=== PATIENT | female | born 1945 | race Caucasian/White ===

== ENCOUNTER → 2016-10-27 | Outpatient (CLI) | payer OTHER ==
[~2016-10-27] MED LIST: ACETAMINOPHEN325 M1 PO; ADVAIR 250-501 EACH IH; ALBUTEROL2.5 MG/0.5 INH; ARAVA20 MG PO; ASPIR 8181 MG PO; ASPIRIN EC81 M1 PO; CEPACOL SORE T1 EAC9 PO; CEPHALEXIN 500500 M3 PO; COLACE100 MG PO; COUMADIN 5 MG TA5 M1 PO; DITROPAN XL5 M1 PO; DUONEB 2.5-0.5 M3 ML INH; DURAGESIC1 EAC2; ENOXAPARIN100 MG/11 SUBQ; ESTRACE0.5 MG PO; FENTANYL PA50 MCG/HR TRANSDERM; FENTANYL PATCH75 MCG TRANSDERM; FISH OIL 1,0001 EAC5 PO; FUROSEMIDE 20 M20 MG; FUROSEMIDE 40 M40 M1 PO; GLUCOPHAGE1000 MG PO; GLUCOPHAGE500 MG PO; HYDROCODON-ACE1 EAC7 PO; HYDROCODONE-AP1 EAC6 PO; K-DUR10 MEQ PO; KEFLEX500 M1 PO; LASIX 40 MG TAB40 M2 PO; LASIX 80 MG TAB80 MG PO; LEVOTHYROXIN0.075 MG PO; LEVOTHYROXIN0.112 M1 PO; LEVOTHYROXINE0.05 MG PO; LEVOXYL50 MCG PO; LEVOXYL75 MCG PO; LISINOPRIL10 MG PO; LYRICA 75 MG CA75 MG PO; METFORMIN HCL500 MG PO; METHADONE HCL 110 MG PO; MOM PO; NEURONTIN 300300 M1 PO; NORCO 5-325 TA1 EACH PO; NOVOLOG100 UNIT/1; PAROXETINE HCL40 MG PO; PAXIL20 MG PO; PAXIL40 MG PO; PREDNISONE 10 M10 M1 PO; PRINIVIL10 MG PO; PROMETHAZINE HC25 M1 PO; ROCEPHIN 11 GM/1001 IV; TRIAMCINOLONE A80 G2 TOP; TRIPLE ANTIBIO1 EACH TRANSDERM; TYLENOL325 MG PO; ULTRAM 50MG TAB50 MG PO; VITAMIN B-121000 MCG PO; ZOCOR 20 MG TAB20 M1 PO; ZOCOR20 MG PO
== END ==
LOC: HYPER 07:11
DX: E11.622 Type 2 diabetes mellitus with other skin ulcer (principal); L97.811 Non-pressure chronic ulcer of other part of right lower leg limited to breakdown of skin; L03.115 Cellulitis of right lower limb; I89.0 Lymphedema, not elsewhere classified; R60.1 Generalized edema; I83.10 Varicose veins of unspecified lower extremity with inflammation; E11.65 Type 2 diabetes mellitus with hyperglycemia; E11.43 Type 2 diabetes mellitus with diabetic autonomic (poly)neuropathy; E66.09 Other obesity due to excess calories; J44.9 Chronic obstructive pulmonary disease, unspecified; M19.90 Unspecified osteoarthritis, unspecified site; Z87.891 Personal history of nicotine dependence

== ENCOUNTER → 2016-11-11 | Outpatient (CLI) | payer OTHER | LOC: HYPER 07:20 | DX: E11.622 Type 2 diabetes mellitus with other skin ulcer (principal); L97.811 Non-pressure chronic ulcer of other part of right lower leg limited to breakdown of skin; I89.0 Lymphedema, not elsewhere classified; E11.43 Type 2 diabetes mellitus with diabetic autonomic (poly)neuropathy; E66.09 Other obesity due to excess calories; E11.36 Type 2 diabetes mellitus with diabetic cataract; J44.9 Chronic obstructive pulmonary disease, unspecified; M19.90 Unspecified osteoarthritis, unspecified site; Z87.891 Personal history of nicotine dependence; Z68.42 Body mass index [BMI] 45.0-49.9, adult ==

== ENCOUNTER → 2016-12-01 | Outpatient (CLI) | payer OTHER | LOC: RAD 15:17 | DX: M25.78 Osteophyte, vertebrae (principal); J18.9 Pneumonia, unspecified organism; J44.9 Chronic obstructive pulmonary disease, unspecified ==

== ENCOUNTER → 2017-01-26 | Outpatient (CLI) | payer OTHER | LOC: HYPER 12-02 15:23 | DX: E11.622 Type 2 diabetes mellitus with other skin ulcer (principal); L97.811 Non-pressure chronic ulcer of other part of right lower leg limited to breakdown of skin; I89.0 Lymphedema, not elsewhere classified; E11.65 Type 2 diabetes mellitus with hyperglycemia; E11.43 Type 2 diabetes mellitus with diabetic autonomic (poly)neuropathy; I83.10 Varicose veins of unspecified lower extremity with inflammation; E66.09 Other obesity due to excess calories; E11.36 Type 2 diabetes mellitus with diabetic cataract; J44.9 Chronic obstructive pulmonary disease, unspecified; M19.90 Unspecified osteoarthritis, unspecified site; Z68.42 Body mass index [BMI] 45.0-49.9, adult; Z87.891 Personal history of nicotine dependence ==

== ENCOUNTER 2017-02-22 13:02 | Observation (INO) | payer OTHER ==
[~2017-02-22] VITALS: Ht 152.4 cm; Wt 113.4 kg
--- NOTE | ~2017-02-22 | EKG ---
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 : 1945 Requested By: Don Mercedes Order Number: [id number] MD: Andi Stevens Measurements Intervals [place] Rate: 95 P: 42 MN: 136 QRS: -31 QRSD: 95 T: 115 QT: 342 QTc: 430 Interpretive Statements Sinus rhythm Atrial premature complex Left axis deviation Abnormal R-wave progression, late transition Nonspecific T abnormalities, lateral leads Compared to ECG 12/05/2013 10:15:27 Left-axis deviation now present T-wave abnormality now present Electronically Signed On 02-22-2017 18:02:45 CDT by Andi Stevens [email or web address] <ELECTRONICALLY SIGNED> By: nAdi Stevens MD, [facility] 02/22/17 1802 1350 1350 Andi Stevens MD, [facility] /EPI
--- NOTE | ~2017-02-22 | HC ---
[facility] [place] [address] CONSULTATION Name: SAMPSON POSADA Room #: 441-P ADM IN M.R.#: [id number] Admission: 02/22/17 Attend Phys: Ranjith De DO Discharge: Date of : 41 Report #: [id number] THIS REPORT FOR: //name// CC: Ricky De REASON FOR CONSULTATION: I was asked to evaluate concerning bacteremia in the setting of abdominal pain and vomiting. HISTORY OF PRESENT ILLNESS: The patient was a 71-year-old with history of diabetes, obesity, chronic lymphedema who had the acute onset of abdominal pain to the upper abdomen associated with nausea and vomiting. Presented to the Emergency Room with low grade fever of 100.[address] scan of the abdomen showed circumferential mural thickening of the small bowel loops and mild stranding with dilatation of the small bowel proximal to this. Her vomiting has subsided. Still has some abdominal discomfort. No family history of inflammatory bowel disease. She has had a colonoscopy within the last 5 years with diverticulosis diagnosed. No ongoing chills or sweats. REVIEW OF SYSTEMS: Notes no skin rashes other than chronic venous stasis disease and recurring ulcers over the right leg. No cough or sputum production. No dysuria or frequency. ALLERGIES: CODEINE, HYDROCODONE, ONDANSETRON, OXYCODONE, LIDOCAINE. PAST MEDICAL HISTORY: Diabetes, hyperlipidemia, hypothyroidism, recurring venous stasis ulcers, diverticulosis, fibromyalgia. PAST SURGICAL HISTORY: Appendectomy, hysterectomy, right hip surgery, back surgery, neck surgery. FAMILY HISTORY: Noncontributory. SOCIAL HISTORY: Nonsmoker, no significant alcohol intake. MEDICATIONS: As noted on her MAR including Levaquin and metronidazole yesterday as well as vancomycin was started last evening. PHYSICAL EXAMINATION: VITAL SIGNS: Afebrile and hemodynamically stable. GENERAL: She was alert and cooperative. She is in no acute distress. Obese. SKIN: Revealed venous stasis changes, right lower extremity greater than left. She had avulsed nail, right great toe. HEENT: Unremarkable. CHEST: Clear. HEART: Regular. ABDOMEN: Soft, tender in the epigastric region. No appreciable masses or [facility] [address] [place] [address] CONSULTATION Name: SAMPSON POSADA Room #: 441-P [facility] IN M.R.#: [id number] Admission: 02/22/17 Attend Phys: Ranjith De DO Discharge: Date of : 41 Report #: [id number] hepatosplenomegaly. NEUROLOGIC: Normal. LABORATORY STUDIES: Sodium 139, potassium 3.9, bicarbonate of 33, creatinine 0.6. Liver function test normal. Hemoglobin 12.4, white count 9.5, platelet count 178,000. Sedimentation rate 55. Urinalysis unremarkable. Blood cultures revealed 1/2 cultures positive for coag negative staph consistent with contamination. Chest x-ray clear. Ultrasound fatty liver. CT abdomen, partial small-bowel obstruction with thickening of the bowel wall. Small bowel follow through x-ray is pending. IMPRESSION: Partial small-bowel obstruction, etiology undetermined at this time. PLAN: Await small bowel follow through. GI service has evaluated and is working her up for inflammatory bowel disease. The patient's blood culture is contaminant. Recommend observing off antibiotics and awaiting further studies regarding her small bowel. By: 1211 1722 Don Joyce MD /nt
[2017-02-22 13:14] VITALS: BP 151/61
[2017-02-22 13:47] LABS: HEMATOCRIT 44.7 % (37.0-47.0); MCH 30.8 pg (26.0-34.0); MCHC 33.6 g/dL (28.0-37.0); MCV 91.7 fL (80.0-100.0); PLATELET COUNT 195 thou/uL (150-400); RBC 4.87 mil/uL (4.20-5.00); RDW 14.9 % (10.5-14.5); WBC 13.8 thou/uL (4.0-11.0)
[2017-02-22 13:53] LABS: MANUAL DIFF YES
[2017-02-22 13:55] LABS: ANION GAP 6 mmol/L (7-16); BUN 12 mg/dL (7-18); CALCIUM 9.8 mg/dL (8.5-10.1); CHLORIDE 96 mmol/L (98-107); CO2 34 mmol/L (21-32); CREATININE 0.7 mg/dL (0.6-1.0); GLUCOSE 274 mg/dL (74-106); POTASSIUM 3.9 mmol/L (3.5-5.1); SODIUM 136 mmol/L (136-145)
[2017-02-22 14:03] LABS: ALBUMIN 3.5 g/dL (3.4-5.0); ALKALINE PHOSPHATASE 79 U/L (46-116); SGOT 31 U/L (15-37); SGPT 58 U/L (30-65); TOTAL BILIRUBIN 0.9 mg/dL (<0.1-1.0); TOTAL PROTEIN 7.4 g/dL (6.4-8.2); TROPONIN-I < 0.04 ng/mL (<0.04-0.07)
[2017-02-22 14:25] LABS: ABSOLUTE NEUTROPHILS 11.9 thou/uL (1.4-8.2); ANISOCYTOSIS SLIGHT; MICROCYTES FEW; POLYCHROMASIA SLIGHT; TOTAL CELL COUNT 100
[2017-02-22 14:26] LABS: LARGE PLATELETS FEW
[2017-02-22 15:15] LABS: URINE BILIRUBIN NEGATIVE (Negative); URINE BLOOD TRACE (Negative); URINE COLOR YELLOW; URINE GLUCOSE-RANDOM* NEGATIVE (Negative); URINE KETONES NEGATIVE (Negative); URINE LEUKOCYTES-REFLEX NEGATIVE (Negative); URINE PROTEIN (DIPSTICK) NEGATIVE (Negative); URINE UROBILINOGEN 0.2 E.U./dl (0.2-1.0)
[2017-02-22 17:49] VITALS: BP 108/51
[2017-02-22 18:05] VITALS: BP 110/53
[2017-02-22 18:34] VITALS: BP 140/55
[2017-02-22 20:15] VITALS: BP 100/85
[2017-02-23 04:55] VITALS: BP 121/64
[2017-02-23 06:15] LABS: HEMATOCRIT 37.8 % (37.0-47.0); MCH 30.9 pg (26.0-34.0); MCHC 32.9 g/dL (28.0-37.0); MCV 93.7 fL (80.0-100.0); RBC 4.03 mil/uL (4.20-5.00); RDW 14.4 % (10.5-14.5); WBC 9.5 thou/uL (4.0-11.0)
[2017-02-23 06:22] LABS: HEMOGLOBIN 12.4 gm/dL (12.0-15.0)
[2017-02-23 06:23] LABS: CALCIUM 8.7 mg/dL (8.5-10.1); CREATININE 0.6 mg/dL (0.6-1.0); POTASSIUM 3.9 mmol/L (3.5-5.1)
[2017-02-23 07:27] VITALS: BP 132/50
[2017-02-23 15:15] VITALS: BP 113/39
[2017-02-23 19:53] VITALS: BP 114/93
[2017-02-24 05:25] VITALS: BP 137/53
[2017-02-24 08:12] VITALS: BP 124/48
[2017-02-24 16:11] VITALS: BP 150/60
[2017-02-24 19:55] VITALS: BP 148/56
[2017-02-25 03:50] VITALS: BP 145/50
[2017-02-25 08:00] VITALS: BP 130/45
[2017-02-25 15:40] VITALS: BP 133/57
[2017-02-25 19:34] VITALS: BP 128/72
[2017-02-26 04:30] VITALS: BP 147/53
[2017-02-26 08:16] VITALS: BP 138/57
[2017-02-26] MEDS ORDERED: PREDNISONE 5 MG5 M1 PO (10:56)
[2017-02-26] MEDS ORDERED: AUGMENTIN 875875 MG PO (10:56)
[2017-02-26] MEDS ORDERED: CYMBALTA20 MG PO (10:56)
[2017-02-26 11:03] VITALS: BP 138/57
[2017-02-28 14:11] LABS: SACCHAROMYCES IGG 29.2 Units (0.0-24.9)
[2017-03-02 13:13] LABS: SACCHAROMYCES IGA 26.1 Units (0.0-24.9)
== END 2017-02-26 12:42 | disposition home health service (06) ==
LOC: ER 13:02 → 4S 17:28 → EROBS 17:28 → 4S 18:05
PROVIDERS: Emergency Medicine; Hospitalist; Nurse Practitioner
DX: R10.9 Unspecified abdominal pain (principal); E03.9 Hypothyroidism, unspecified; G89.29 Other chronic pain; F32.9 Major depressive disorder, single episode, unspecified; E78.5 Hyperlipidemia, unspecified; G47.33 Obstructive sleep apnea (adult) (pediatric); E11.40 Type 2 diabetes mellitus with diabetic neuropathy, unspecified; Z87.891 Personal history of nicotine dependence; Z79.899 Other long term (current) drug therapy; Z79.82 Long term (current) use of aspirin; Z90.49 Acquired absence of other specified parts of digestive tract; Z90.710 Acquired absence of both cervix and uterus; Z86.718 Personal history of other venous thrombosis and embolism
CPT/HCPCS: 10100

== ENCOUNTER → 2017-04-28 | Outpatient (CLI) | payer OTHER ==
[~2017-04-28] MED LIST changes: +AUGMENTIN 875875 MG PO; +CYMBALTA20 MG PO; +PREDNISONE 5 MG5 M1 PO
[2017-04-28 10:31] LABS: CREATININE 0.9 mg/dL (0.6-1.0)
== END ==
LOC: CAT 09:49
PROVIDERS: Internal Medicine Gastroenterology
DX: K76.0 Fatty (change of) liver, not elsewhere classified (principal); R06.00 Dyspnea, unspecified; J98.6 Disorders of diaphragm

== ENCOUNTER → 2017-05-30 | Outpatient (CLI) | payer OTHER | LOC: SLEEPLAB 05-05 10:59 | DX: G47.33 Obstructive sleep apnea (adult) (pediatric) (principal) ==

== ENCOUNTER 2017-07-08 11:24 | Emergency (ER) | payer OTHER ==
[~2017-07-08] VITALS: Ht 167.6 cm; Wt 113.4 kg
--- NOTE | ~2017-07-08 | EKG ---
[address] [address] ELECTROCARDIOGRAM REPORT Name: SAMPSON POSADA 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 : 1945 Requested By: Anthony Patel Order Number: [id number] MD: Greyson Barron Measurements Intervals [place] Rate: 71 P: 44 AR: 152 QRS: -8 QRSD: 100 T: 52 QT: 397 QTc: 432 Interpretive Statements Sinus rhythm Compared to ECG 02/22/2017 13:50:54 Atrial premature complex(es) no longer present Left-axis deviation no longer present T-wave abnormality no longer present Electronically Signed On 07-08-2017 22:27:58 CULTURAL ANTHROPOLOGY PROFESSOR by Greyson Barron [email or web address] <ELECTRONICALLY SIGNED> By: Greyson Barron MD 07/08/17 2227 1138 1138 Greyson Barron MD /EPI
[2017-07-08 11:56] LABS: ABSOLUTE NEUTROPHILS 4.5 thou/uL (1.4-8.2); BASOPHILS 0.5 % (0.0-2.0); EOSINOPHILS 1.2 % (0.0-3.0); HEMATOCRIT 41.1 % (37.0-47.0); HEMOGLOBIN 13.5 gm/dL (12.0-15.0); LYMPHOCYTES 15.6 % (24.0-44.0); MCH 30.6 pg (26.0-34.0); MCHC 32.8 g/dL (28.0-37.0); MCV 93.1 fL (80.0-100.0); MONOCYTES 9.2 % (1.0-8.0); PLATELET COUNT 197 thou/uL (150-400); POLYS 73.5 % (36.0-66.0); RBC 4.42 mil/uL (4.20-5.00); RDW 14.2 % (10.5-14.5); WBC 6.2 thou/uL (4.0-11.0)
[2017-07-08 12:02] LABS: ANION GAP 3 mmol/L (7-16); BUN 8 mg/dL (7-18); CALCIUM 9.3 mg/dL (8.5-10.1); CHLORIDE 95 mmol/L (98-107); CO2 36 mmol/L (21-32); CREATININE 0.9 mg/dL (0.6-1.0); GLUCOSE 433 mg/dL (74-106); POTASSIUM 3.8 mmol/L (3.5-5.1); SODIUM 134 mmol/L (136-145)
[2017-07-08 12:10] LABS: ALBUMIN 3.2 g/dL (3.4-5.0); SGOT 46 U/L (15-37); SGPT 48 U/L (30-65); TOTAL BILIRUBIN 0.3 mg/dL (<0.1-1.0); TOTAL PROTEIN 6.9 g/dL (6.4-8.2); TROPONIN-I < 0.04 ng/mL (<0.06)
[2017-07-08 13:26] LABS: URINE BILIRUBIN NEGATIVE (Negative); URINE BLOOD NEGATIVE (Negative); URINE CLARITY CLEAR; URINE COLOR YELLOW; URINE GLUCOSE-RANDOM* 3+ (Negative); URINE KETONES NEGATIVE (Negative); URINE LEUKOCYTES NEGATIVE (Negative); URINE NITRITE NEGATIVE (Negative); URINE PROTEIN (DIPSTICK) NEGATIVE (Negative); URINE SPECIFIC GRAVITY <= 1.005 (1.005-1.035); URINE UROBILINOGEN 0.2 E.U./dl (0.2-1.0)
[2017-07-08 14:43] VITALS: BP 123/68
== END 2017-07-08 16:28 | disposition home or self-care (01) ==
LOC: ER 11:24
PROVIDERS: Physician Assistant
DX: R42 Dizziness and giddiness (principal); E11.65 Type 2 diabetes mellitus with hyperglycemia; E78.5 Hyperlipidemia, unspecified; E03.9 Hypothyroidism, unspecified; F32.9 Major depressive disorder, single episode, unspecified; Z91.14 Patient's other noncompliance with medication regimen; Z88.6 Allergy status to analgesic agent; Z88.5 Allergy status to narcotic agent; Z90.710 Acquired absence of both cervix and uterus

== ENCOUNTER 2017-12-06 11:48 | Emergency (ER) | payer OTHER ==
[~2017-12-06] VITALS: Ht 167.6 cm; Wt 113.4 kg
[2017-12-06] MEDS ORDERED: PROVENTIL HFA6.7 G1 INH (12:26)
[2017-12-06] MEDS ORDERED: PREDNISONE 20 M20 MG PO (12:26)
[2017-12-06] MEDS ORDERED: TESSALON PERLE100 MG PO (12:26)
[2017-12-06 12:45] VITALS: BP 126/46
== END 2017-12-06 12:45 | disposition home or self-care (01) ==
LOC: ER 11:48
DX: J40 Bronchitis, not specified as acute or chronic (principal); J98.01 Acute bronchospasm; J44.9 Chronic obstructive pulmonary disease, unspecified; M79.7 Fibromyalgia; E78.5 Hyperlipidemia, unspecified; E03.9 Hypothyroidism, unspecified; F32.9 Major depressive disorder, single episode, unspecified; E11.9 Type 2 diabetes mellitus without complications; Z87.891 Personal history of nicotine dependence; Z88.5 Allergy status to narcotic agent

== ENCOUNTER → 2018-12-21 | Outpatient (CLI) | payer OTHER ==
[~2018-12-21] MED LIST changes: +PREDNISONE 20 M20 MG PO; +PROVENTIL HFA6.7 G1 INH; +TESSALON PERLE100 MG PO
--- NOTE | 2018-12-24 21:53 | SLE ---
[facility] [place] [address] POLYSOMNOGRAPHY STUDY Name: SAMPSON POSADA Room #: [facility]#: [id number] Admission: 12/21/18 ������������������ Attend Phys: Jed Salamanca MD Discharge: ������������������ Date of : 41 Report #: [id number] THIS REPORT FOR: //name// CC: Jed Bell MD DATE OF SERVICE: 12/21/2018 ATTENDING PHYSICIAN: Dr. Negrito Bell. The patient is 73-year-old who weighs 220 pounds with a BMI of 43. The patient has a history of sleep apnea and has been on BiPAP; however, has not been using it. The patient has lost, according to the history, about 40 pounds recently. The patient was referred back for a repeat BiPAP titration study. During the night study, the patient spent 446 minutes in bed and slept for 401 minutes with a sleep efficiency of 89%. Sleep latency was 132 minutes, which is prolonged with a REM latency of 151 minutes. Overall, sleep architecture showed normal stage 1 sleep, increased stage 2 sleep, normal slow wave and normal REM sleep. EKG monitoring revealed an average heart rate of 65 beats per minute. No sustained arrhythmias observed. PLMS was seen at an index of 36 per hour and 0.4 per hour caused EEG arousals. The patient was started on BiPAP at a pressure of 12/6 and titrated up to 17/11. However, best results were seen at a BiPAP pressure of 16/8. The patient had 25 minutes of REM sleep as well as supine sleep seen throughout. The patient's AHI was 3.4 per hour and oxygen saturations remained above 88% with one spot desaturation of 82%. The patient did fairly well on higher pressures up to a maximum of /. However, since the patient has shown intolerance to higher BiPAP pressures previously, a therapeutic pressure of 16/8 would be reasonable. IMPRESSION: 1. Severe sleep apnea diagnosed previously. 2. Moderate PLMS without any significant EEG arousals. This does not need to be treated unless the patient has symptoms of restless legs during the day. RECOMMENDATIONS: 1. BiPAP at 16/8 was effective in treating the patient's underlying sleep apnea and should be used on a nightly basis. 2. Follow up in 4-6 weeks to assess compliance with BiPAP and to document clinical improvement. 3. Weight loss is strongly advised. [facility] [address] [place] [address] POLYSOMNOGRAPHY STUDY Name: SAMPSON POSADA Room #: [facility]#: [id number] Admission: 12/21/18 ������������������ Attend Phys: Jed Salamanca MD Discharge: ������������������ Date of : 41 Report #: [id number] 4. 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 5. Cautioned regarding driving until symptoms of sleep apnea resolve with the use of BiPAP. ��������������������������������������������� <ELECTRONICALLY SIGNED> ���������������������������������������� By: Jed Salamanca MD ��������������������������������������������� 12/24/18 2153 1001 1021 Jed Salamanca MD /yajaira
== END ==
LOC: SLEEPLAB 12-19 16:06
DX: G47.30 Sleep apnea, unspecified (principal)

== ENCOUNTER 2018-12-27 17:10 | Emergency (ER) | payer OTHER ==
[~2018-12-27] VITALS: Ht 152.4 cm; Wt 99.8 kg
[2018-12-27 17:11] VITALS: BP 140/55
== END 2018-12-27 20:25 | disposition home or self-care (01) ==
LOC: ER 17:10
DX: S81.812A Laceration without foreign body, left lower leg, initial encounter (principal); M79.7 Fibromyalgia; E78.5 Hyperlipidemia, unspecified; E03.9 Hypothyroidism, unspecified; E11.40 Type 2 diabetes mellitus with diabetic neuropathy, unspecified; G47.33 Obstructive sleep apnea (adult) (pediatric); F32.9 Major depressive disorder, single episode, unspecified; Z96.641 Presence of right artificial hip joint; Z90.710 Acquired absence of both cervix and uterus; Z98.890 Other specified postprocedural states; Z86.718 Personal history of other venous thrombosis and embolism; Z88.5 Allergy status to narcotic agent; Z87.891 Personal history of nicotine dependence; W18.39XA Other fall on same level, initial encounter; Y93.89 Activity, other specified; Y92.89 Other specified places as the place of occurrence of the external cause; Y99.8 Other external cause status

== ENCOUNTER → 2019-01-08 | Outpatient (CLI) | payer OTHER | LOC: HYPER 06:33 | DX: L97.821 Non-pressure chronic ulcer of other part of left lower leg limited to breakdown of skin (principal); L03.115 Cellulitis of right lower limb; L97.811 Non-pressure chronic ulcer of other part of right lower leg limited to breakdown of skin; I89.0 Lymphedema, not elsewhere classified; E11.43 Type 2 diabetes mellitus with diabetic autonomic (poly)neuropathy; E66.09 Other obesity due to excess calories; E11.36 Type 2 diabetes mellitus with diabetic cataract; R60.1 Generalized edema; J44.9 Chronic obstructive pulmonary disease, unspecified; J45.909 Unspecified asthma, uncomplicated; F32.9 Major depressive disorder, single episode, unspecified; Z87.891 Personal history of nicotine dependence; Z68.42 Body mass index [BMI] 45.0-49.9, adult ==

== ENCOUNTER → 2019-03-14 | Outpatient (CLI) | payer OTHER | LOC: HYPER 01-29 06:53 | DX: S80.12XD Contusion of left lower leg, subsequent encounter (principal); S91.104A Unspecified open wound of right lesser toe(s) without damage to nail, initial encounter; I83.10 Varicose veins of unspecified lower extremity with inflammation; I89.0 Lymphedema, not elsewhere classified; E11.65 Type 2 diabetes mellitus with hyperglycemia; E11.43 Type 2 diabetes mellitus with diabetic autonomic (poly)neuropathy; E11.36 Type 2 diabetes mellitus with diabetic cataract; E66.09 Other obesity due to excess calories; E07.89 Other specified disorders of thyroid; R60.1 Generalized edema; J44.9 Chronic obstructive pulmonary disease, unspecified; J45.909 Unspecified asthma, uncomplicated; M19.90 Unspecified osteoarthritis, unspecified site; F32.9 Major depressive disorder, single episode, unspecified; Z68.42 Body mass index [BMI] 45.0-49.9, adult; Z87.891 Personal history of nicotine dependence; X58.XXXA Exposure to other specified factors, initial encounter; Y93.89 Activity, other specified; Y92.89 Other specified places as the place of occurrence of the external cause; Y99.8 Other external cause status ==